=== PATIENT | female | born 1985 | race Asian ===

== ENCOUNTER 2017-11-13 14:54 | Inpatient (IN) | payer SELFPAY ==
[2017-11-13] MEDS ORDERED: Lidocaine 1% w/Epinephrine 1:100K 20 ML VIAL ONE (15:16)
[2017-11-13 15:31] LABS: Bilirubin Negative (Negative); Blood, Urine Trace (Negative); Clarity CLEAR (Clear); Glucose, Urine (Dipstick) Negative (Negative); Leukocyte Small (Negative); Nitrite Negative (Negative); Protein, Urine (Dipstick) Negative (Neg-Trace); Specific Gravity, Urine 1.036 (1.002-1.036); Urobilinogen 0.2 mg/dL (0.2-1.0)
[2017-11-13 15:33] LABS: Bacteria/HPF None Seen HPF (None Seen); Hyaline Casts/LPF 0-3 HYALINE CAST LPF (0-3 Hyaline); Pathc Cast-AUWi Flag 0.14 (0-2.49); Squamous Epithelial 0-3 HPF (0-3)
[2017-11-13 15:44] LABS: Benzodiazepine Screen Detected (NotDetected); Medtox Reader # READER 1
[2017-11-13 15:45] LABS: Amphetamine Not Detected (NotDetected); Barbiturates Screen Not Detected (NotDetected); Cocaine Metabolite Screen Not Detected (NotDetected); Medtox Control Line Valid? VALID (VALID); Methadone Not Detected (NotDetected); Methamphetamine Not Detected (NotDetected); Opiate Screen Not Detected (NotDetected); Oxycodone Screen Not Detected (NotDetected); Phencyclidine (PCP) Not Detected (NotDetected); THC/Cannabinoid Screen Not Detected (NotDetected); Tricyclic Screen Not Detected (NotDetected)
--- NOTE | 2017-11-13 16:06 | RAD ---
PORTABLE CHEST ONE VIEW: Date: 11-13-17 Time: 2:27 p.m. History: Altered mental status. FINDINGS: The heart size is normal. The lungs are expanded without focal areas of consolidation, pneumothorax, or pleural effusions. The first image demonstrates a coin in the right lower chest which was removed when the second image was obtained. POS: [facility]
[2017-11-13 16:17] LABS: BHCG - Serum Negative (NEGATIVE); Pregs Control Background? CLEAR/WHITE (CLR/WHITE); Pregs Control Bar Appear? YES (CONTROL BAR)
[2017-11-13 16:18] LABS: Acetaminophen Less than 6.0 mcg/mL (10.0-30.0); Alcohol Less than 10 mg/dL (Less than 10); Salicylate Less than 8.0 mg/dL (15.0-30.0)
[2017-11-13 16:20] LABS: ALT (SGPT) 35 U/L (8-55); AST (SGOT) 27 U/L (5-34); Albumin 4.5 g/dL (3.5-5.0); Alkaline Phosphatase 38 U/L (40-150); Anion Gap 12 mmol/L (10-20); BUN (Urea Nitrogen) 5 mg/dL (7.0-18.7); Bilirubin, Total 0.6 mg/dL (0.2-1.2); CK (CPK) 186 U/L (29-168); Calc. Creatinine Clearance 0 mL/min (70-130); Calcium 8.5 mg/dL (7.8-10.44); Carbon Dioxide 21 mmol/L (22-29); Chloride 109 mmol/L (98-107); Estimated GFR-MDRD Greater than 90; Globulin 2.7 g/dL (2.4-3.5); Glucose 114 mg/dL (70-105); Lipase 12 U/L (8-78); Potassium 3.3 mmol/L (3.5-5.1); Protein, Total 7.2 g/dL (6.0-8.3); Sodium 139 mmol/L (136-145)
[2017-11-13 16:23] LABS: CKMB 2.3 ng/mL (0-6.6); Troponin I Less than 0.010 ng/mL (< 0.028)
[2017-11-13 16:28] LABS: Color Of CSF Supernatant COLORLESS (Colorless); Tube # 2; Unspun CSF Color COLORLESS (Colorless)
[2017-11-13 16:29] LABS: CSF Source CSF; Clarity Clear (Clear); RBC Count - Manual 81 /cumm (None Seen); Tube # 4; WBC/NonHematics Count - Manual 1 /cumm (0-5)
[2017-11-13 16:42] LABS: CSF Source CSF; CSF, Glucose 67 mg/dl (40-70); CSF, Protein 29 mg/dL (15-40); Clarity Clear (Clear); Tube # 1; WBC/NonHematics Count - Manual 1 /cumm (0-5)
[2017-11-13 16:43] LABS: RBC Count - Manual 270 /cumm (None Seen)
[2017-11-13 16:47] LABS: #Eosinphils 0.1 thou/uL (0.0-0.7); #Lymphocytes 2.8 thou/uL (1.20-3.40); #Monocytes 0.5 thou/uL (0.11-0.59); #Neutrophils 5.7 thou/uL (1.40-6.50); %Basophils 0.3 % (0.0-1.0); %Lymphocytes 30.4 % (21.0-51.0); %Monocytes 5.2 % (0.0-10.0); %Neutrophils 63.1 % (42.0-75.0); Mean Corpuscular HGB CONC 35.3 g/dL (32.0-36.0); Mean Corpuscular Hemoglobin 31.5 pg (27.0-31.0); Mean Corpuscular Volume 89.4 fL (78.0-98.0); Platelet Count 246 thou/uL (130-400); RBC Distribution Width 10.9 % (11.5-14.5); Red Blood Cell (RBC) Count 4.12 mill/uL (4.20-5.40); White Blood Cell (WBC) Count 9.1 thou/uL (4.8-10.8)
[2017-11-13 17:32] LABS: T4 7.9 ug/dL (4.87-11.72)
--- NOTE | 2017-11-13 18:16 | HP ---
DATE OF ADMISSION: 11/13/2017 TIME OF SERVICE: 1730 hours. PRIMARY CARE PHYSICIAN: None. The patient is [place] [facility]. [facility] COMPLAINT: Altered mental status. HISTORY OF PRESENT ILLNESS: Patient is a 32-year-old [place] female with a history of problems a couple of years ago that her brother describes as mental and sleep problems. She was given a medicin e at that time by [place] doctor and seemed to get over it. The brother gives a history in the last 2 days, the patient has not been acting like herself. She suggs s not really been talking and kind of been moving around slowly. Yesterday, they gave her some of th e medicine from the [place] doctor again and today, she was found down on the floor choking on a br acelet that she had tried to swallow. EMS was called. She was brought to the emergency department f or evaluation. Here, her CK was elevated. Her prolactin was slightly elevated. She is awake and following simple c ommands, though she does not understand [place] and her brother has to translate in [place] for her . She subsequently has no focal deficits. Test of the labs remained normal. We were called for fur ther workup. The brother denies her having any bowel or bladder incontinence, no tongue biting and no tonic clonic type activity. PAST MEDICAL HISTORY: None. PAST SURGICAL HISTORY: None. HOME MEDICATIONS, ALLERGIES: Unknown. The medicine she has received from a [place] doctor her bro ther has at home but is written down in [place] and he does not know the translation. ALLERGIES: NKDA. FAMILY HISTORY: Negative for clotting or bleeding disorder. No immune dysfunction. SOCIAL HISTORY: Negative for habits x3. 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 REVIEW OF SYSTEMS: Obtained through her brother are negative for all systems except as stated as per HPI. PHYSICAL EXAMINATION: VITAL SIGNS: Temperature current 98.2, pulse 84, blood pressure 133/87, respiratory rate 20, satting 100% on room air. GENERAL: She is awake. She is alert. She is following commands. She is a well-developed, well-nou rished [place] female, appears to be in zero distress. HEENT: Normocephalic and atraumatic. Pupils are equal and round, reactive to light bilaterally. Mu cous membranes are moist. She has no visible lesions or thrush. NECK: Supple. She has no lymphadenopathy, no JVD, no thyromegaly. She has normal carotid upstroke. I do not appreciate bruit. CHEST: Lungs are Clear. She has good air movement. Symmetric chest excursion. No wheezes, no rale s, no rhonchi. No prolonged expiratory phase. CARDIOVASCULAR: Normal S1, S2. She has no S3 or S4. I appreciate no murmurs. ABDOMEN: Soft, it is nontender, nondistended. No masses or organomegaly. She has good bowel sounds in all 4 quadrants. No rebound, rigidity or guarding. EXTREMITIES: No cyanosis, no clubbing, no edema, 2+ dorsalis pedis and posterior tibials bilaterally . SKIN: Warm, moist, and well perfused. She has no rash or lesions. She does have some kind of pink pigment or pain present around her nipples down onto her abdomen area. She has been painted on there . Her brother is not sure where it came from. MUSCULOSKELETAL: Normal to inspection. Large joints appear normal. No evidence of inflammation or palpable effusions. NEUROLOGIC: Her cranial nerves II-XII are grossly intact. She is able to move all of her extremitie s. She follows commands. She really did not speak much. LABORATORY DATA: 1. CBC showed a white count of 9.1, hemoglobin 13.0, hematocrit of 36.8, platelet count is normal at 246,000 with normal differential. 2. CMP: Sodium 139, potassium 3.3, chloride 109, bicarb 21, BUN 5, creatinine 0.60, glucose 114. C alcium is 8.5. CK is slightly elevated at 186. Alkaline phosphatase low. Liver function within nor mal limits. Ammonia is normal at 34. CK-MB is normal at 2.3. Troponin I was undetectable less than 0.010 and her BNP was undetectable. 3. Her TSH was suppressed at 0.0030 and a prolactin was slightly elevated at 2.[address] was negative. Urinalysis showed 11-20 white cells, small amount of leukoesterase, but no bacteria . CSF studies obtained showed 1 white blood cell and a few red blood cells numbering 81 in tube 4. 4. She had glucose and protein that were normal. 5. Urine drug screen was positive for benzodiazepines. Negative for salicylate, acetaminophen and a lcohol, rest were negative. IMAGING: Chest x-ray showed no acute abnormalities. She had a CT scan at the outside facility is re portedly negative that I do not have access to that. ASSESSMENT AND PLAN: 1. Metabolic encephalopathy: The etiology is not clear. I wonder she has not been having partial s eizures for a couple of days and progressed to a grand mal seizure or a complex seizure. We will justo ce her on Keppra for right now. We will watch her on seizure precautions overnight on telemetry monique flores and serial cardiac biomarkers. We will ask Neurology to evaluate. 2. Positive for benzodiazepines: The patient does not take any medicines other than what the [place] doctor gave her and we are not sure what that is. Her urine drug screen positive for benzodiazep melissa, both here and at the outside facility prior to getting any medicines. 3. Near-choking spell. Patient apparently tried to swallow some kind of bracelet and was choking on it, but her brother was able to get it out and remove it. 4. We will place the patient in observation, watch overnight.
[2017-11-13] MEDS ORDERED: Ondansetron HCl/PF 4 MG/2 ML Vial IVP PRN ×2 (18:32→18:48)
[2017-11-13] MEDS ORDERED: Ondansetron ODT 4 MG TAB SL PRN (18:32)
[2017-11-13] MEDS ORDERED: Acetaminophen 650 MG Suppository PR PRN (18:48)
[2017-11-13] MEDS: Famotidine 20 MG TAB PO SCH (21:09)
[2017-11-13] MEDS: D5 1/2 NS w/20 mEq KCL 1,000 ML IV SCH (21:12)
[2017-11-13] MEDS: levETIRAcetam In NaCl (Iso-Os) 1,000 MG in Premix Bag 1 BAG IVPB SCH (21:13)
[2017-11-13] MEDS: Acetaminophen 325 MG TAB PO PRN (23:46)
[2017-11-14 03:04] VITALS: BMI 26.7
[2017-11-14] MEDS: D5 1/2 NS w/20 mEq KCL 1,000 ML IV SCH (06:24)
[2017-11-14 08:34] LABS: #Basophils 0.1 thou/uL (0.0-0.2); #Eosinphils 0.1 thou/uL (0.0-0.7); #Monocytes 0.4 thou/uL (0.11-0.59); #Neutrophils 4.1 thou/uL (1.40-6.50); %Basophils 0.8 % (0.0-1.0); %Eosinophils 1.3 % (0.0-10.0); %Lymphocytes 30.5 % (21.0-51.0); %Monocytes 6.5 % (0.0-10.0); Hemoglobin 13.2 g/dL (12.0-16.0); Mean Corpuscular HGB CONC 33.8 g/dL (32.0-36.0); Mean Corpuscular Hemoglobin 30.9 pg (27.0-31.0); Mean Corpuscular Volume 91.6 fL (78.0-98.0); Mean Platelet Volume 6.6 fL (7.4-10.4); Platelet Count 242 thou/uL (130-400); Red Blood Cell (RBC) Count 4.26 mill/uL (4.20-5.40); White Blood Cell (WBC) Count 6.7 thou/uL (4.8-10.8)
[2017-11-14 08:50] LABS: Anion Gap 11 mmol/L (10-20); BUN (Urea Nitrogen) 4 mg/dL (7.0-18.7); Calc. Creatinine Clearance 137 mL/min (70-130); Calcium 8.8 mg/dL (7.8-10.44); Carbon Dioxide 22 mmol/L (22-29); Chloride 111 mmol/L (98-107); Estimated GFR-MDRD Greater than 90; Glucose 115 mg/dL (70-105); Potassium 3.7 mmol/L (3.5-5.1); Sodium 140 mmol/L (136-145)
[2017-11-14] MEDS: Famotidine 20 MG TAB PO SCH ×2 (10:38→21:44)
[2017-11-14] MEDS: Acetaminophen 325 MG TAB PO PRN (10:38)
[2017-11-14] MEDS: levETIRAcetam In NaCl (Iso-Os) 1,000 MG in Premix Bag 1 BAG IVPB SCH (10:39)
[2017-11-14] MEDS ORDERED: HYDROcodone/Acetaminophen 7.5/325 mg Tablet PO SCH (13:15)
[2017-11-14] MEDS ORDERED: levETIRAcetam 500 MG TAB PO SCH (14:00)
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
[2017-11-14] MEDS: levETIRAcetam 500 MG TAB PO SCH (21:44)
[2017-11-15] MEDS: Acetaminophen 325 MG TAB PO PRN (01:16)
--- NOTE | 2017-11-15 02:52 | CON ---
DATE OF CONSULTATION: 11/14/2017 REFERRING PROVIDER: Dr. Joel Woody. REASON FOR CONSULTATION: Altered mental status. HISTORY OF PRESENT ILLNESS: Ms. Avila is a 32-year-old female, who has been concerned for evaluation o f altered mental status. History is obtained from patient's brother. I had a discussion with the br other using the carving machine operator. Brother reports that patient had been acting in a bizarre behavior on da y before yesterday. She had highlighted different parts of her body. She then had yesterday an epis ode of hitting her head. She developed pain and headache onto the back of the head and she was again not acting appropriately, which brought her to the [facility]. He reports that she has had episodes of a bizarre behavior in the past. Her first episode was 9 years ago, at which time she was started on medication that he does not know the name of. At that time, he was told judy t she has some form of mental illness. She was started on medication for approximately 2 weeks and t hen discontinued. Since then she has had multiple episodes of bizarre behavior, for which she had to be given medications. Her last episode was about 1 year ago. At that time, the physicians in [facility] had started her on medication that he states was supposed to be for headaches. He states that th ree of her siblings also have some form of episodes of bizarre behavior, for which they have been michaela ated. He himself had episode of a bizarre behavior 20 years ago, but since then he has not had any e pisode. PAST MEDICAL HISTORY: None significant. PAST SURGICAL HISTORY: None significant. SOCIAL HISTORY: She does not smoke cigarettes, drink alcohol, or use illicit drugs. CURRENT MEDICATIONS: None. ALLERGIES: No known drug allergies. FAMILY HISTORY: As mentioned above in HPI, otherwise negative. REVIEW OF SYSTEMS: Unable to perform. PHYSICAL EXAMINATION: VITAL SIGNS: Blood pressure of 137/95, pulse of 71, temperature of 98.7, respirations 16, and O2 sat is 99% on room air. GENERAL: A well-developed, well-nourished female in no apparent distress. RESPIRATORY: Clear to auscultation bilaterally. CARDIOVASCULAR: Regular rate and rhythm. NEUROLOGIC EXAM: Mental status: The patient is awake, alert. She appears oriented to person. Jean joiner and language difficult to evaluate, although the brother reports that it is her normal speech. Cr anial nerves: Pupils are 3 mm and reactive. Visual vazquez are full to threat. External muscles are intact. No nystagmus is noted. Face is symmetric. Tongue and uvula are midline. Motor exam showe d normal tone and bulk with 4/5 strength in both upper and lower extremities. Sensory: Sensation ap pears intact. Deep tendon reflexes 2+ reflexes in both upper and lower extremities. Babinski: Plan tar responses flexion bilaterally. Coordination intact to [id number] and finger tapping bila terally. Gait and Romberg are not tested. LABORATORY DATA: Labs are reviewed, which included CBC, CMP, TSH, urinalysis, CSF study, and urine d rug screen, which is significant for TSH of 0.003. Urinalysis showing a small leukocyte esterase wit h 11-20 wbc, otherwise negative. IMPRESSION: Acute delirium. Ms. Avlia is a 32-year-old female, who presented with acute delirium. On further discussion with the brother, she is noted to have some hallucinations and delusionary behavi or. Based on this description, it is likely that she has underlying psychiatric condition, more like ly either schizophrenia or other psychotic conditions. I would recommend obtaining MRI brain with an d without contrast to rule out underlying structural pathology as the cause of her symptoms. This co uld also be secondary to thyroid or metabolic derangement, as she has a very low TSH. Thyroid-induce d delirium cannot be completely excluded. I do not think, based on the description, that she had sei zures. I would discontinue Keppra for now. I will obtain MRI and also EEG to further evaluate for s eizure-type activity. Continue supportive care. Thank you for the consultation.
[2017-11-15] MEDS: levETIRAcetam 500 MG TAB PO SCH ×3 (08:19→20:46)
[2017-11-15] MEDS: Famotidine 20 MG TAB PO SCH ×3 (08:19→20:45)
--- NOTE | 2017-11-15 11:06 | PRG ---
DATE OF SERVICE: 11/15/2017 SUBJECTIVE: The patient today is laughing uncontrollably. She is not going to verbally interact. T ranslation line was used in the patient said that she would not be talking to us and shaking her head no while laughing uncontrollably. PHYSICAL EXAMINATION: VITAL SIGNS: Temperature is 97.3, pulse 75, respirations 16, 100% on room air, blood pressure 102/63 . GENERAL: Age appropriate female who was again laughing uncontrollably. She is not terribly cooperat vito with the exam. HEART: Attempted to listen to her heart which sounds normal, then she pushed my hands away. LABORATORY DATA: Only new lab results were spinal fluid, which is negative on culture. IMPRESSION AND PLAN: Altered mental status. At this point, the patient's behavior has completely tu rned 180 degrees from the sobbing and crying that she was experiencing yesterday and uncontrollable l aughter today. I appreciate neurology's input. It is concern at this point that the patient has mariano deepika psychiatric disease. Her other issues are low TSH with normal T3 and the very slightly elevated prolactin level. We will attempt to get the MRI today. Unclear that the patient will tolerate it. Pending results of that. We will talk to Neurology again to see if this is truly something that nee ds to be worked up now or can be medically cleared for psychiatric evaluation. If not, we would cons ider pursuing a facility where the patient can receive medication psych treatment.
[2017-11-15] MEDS: Ondansetron ODT 4 MG TAB PO PRN (14:21)
--- NOTE | 2017-11-15 16:53 | RAD ---
ABDOMEN ONE VIEW: 11/15/17 HISTORY: MRI clearance. FINDINGS/IMPRESSION: Visualized bowel gas pattern is nonspecific. Phleboliths project over the pelvis. No metallic foreign bodies are visible. POS: [facility]
--- NOTE | 2017-11-15 17:00 | RAD ---
SKULL TWO VIEWS: HISTORY: MRI clearance. Unknown if the patient has had previous intracranial hardware or surgery. TECHNIQUE: AP and lateral views of the skull are obtained. FINDINGS: The calvarium is unremarkable. No evidence of radiopaque foreign bodies or debris seen. IMPRESSION: Normal two views skull with no evidence of intracranial hardware or radiopaque foreign body seen. POS: [facility]
[2017-11-16] MEDS: Famotidine 20 MG TAB PO SCH ×2 (08:06→20:46)
[2017-11-16] MEDS: levETIRAcetam 500 MG TAB PO SCH (08:06)
[2017-11-16] MEDS: Ondansetron ODT 4 MG TAB PO PRN (13:10)
[2017-11-16] MEDS: Acetaminophen 325 MG TAB PO PRN (14:32)
--- NOTE | 2017-11-16 16:37 | PRG ---
DATE OF SERVICE: 11/16/2017 SUBJECTIVE: The patient is a little bit more interactive today. Her brother is here visiting and he reports that she has been more interactive with him as well. He was the scooping machine tender apt to communica te with the patient. She did apparently report some headache and she tends to indicate her temporal area, especially on the left. She also complains of some pain in her right forearm area. She has an ecchymoses there from where IV site was previously. OBJECTIVE: VITAL SIGNS: Temperature 98.1, pulse 80, respirations 16, pulse 100, BP 118/83.GENERAL APPEARANCE: Age appropriate female. She is in no distress. She is awake and more alert. HEART: Regular rate and rhythm. LUNGS: Clear. ABDOMEN: Soft, nontender, nondistended. HEENT: Pupils are reactive. IMAGING DATA: X-rays of the skull and abdomen were negative, clearing the patient for MR. ASSESSMENT: 1. Altered mental status with an apparent attempt at self harm. Patient has been evaluated by Neuro logy. The patient has had some slight alterations with prolactinemia, which was very mild and a low TSH. The patient has been unable to cooperate enough to get the MRI. She was able to get some x-ray s of the skull and abdomen yesterday to clear her for getting the MRI and the MRI went down this morn ing. It is back up this afternoon and she has gone through the MRI. Once we obtain that we do not s ee any evidence of microadenoma, we will consider a consult to [facility] at that time. 2. Mild hyperprolactinemia, unclear etiology. Again, the MRI will help sort that out. 3. Decreased TSH with normal T3 rather. This would imply the patient had some exogenous thyroid, al though there is no indication that she was taking any. We will also recheck those values tomorrow to confirm that they are in fact correct.
--- NOTE | 2017-11-16 17:03 | MRI ---
BRAIN MRI WITHOUT CONTRAST: Date: 11-16-17 Comparison: None. History: Altered mental status, elevated prolactin, low TSH. Technique: Multiplanar, multisequence MRI images were obtained of the brain without contrast using a pituitary mass protocol. FINDINGS: The diffusion weighted imaging demonstrates no evidence for acute infarction. The sagittal T1 weighted imaging demonstrates normal osseous marrow signal intensity. Arterial flow voids at the axial level of the skull base appear unremarkable on the T2 weighted imagi ng. There is no suprasellar lesion identified. No abnormal T2 or FLAIR signal is seen on the axial imagin g within the brain parenchyma. Post contrast imaging was not performed as the patient refused IV access. This limits assessment for a sellar lesion. IMPRESSION: Grossly unremarkable noncontrast enhanced assessment as detailed above. Evaluation for a pituitary ma ss is limited without post contrast imaging, but no contour abnormality of the pituitary gland is not ed and no suprasellar mass lesion is seen. POS: [facility]
[2017-11-16] MEDS ORDERED: traMADol HCl 50 MG TAB PO PRN (17:39)
[2017-11-17] MEDS: Famotidine 20 MG TAB PO SCH ×2 (08:51→21:38)
[2017-11-17] MEDS: Acetaminophen 325 MG TAB PO PRN (09:17)
[2017-11-17 11:38] LABS: Free T4 (Free Thyroxine) 1.45 ng/dL (0.70-1.48)
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
[2017-11-18] MEDS: Famotidine 20 MG TAB PO SCH ×2 (09:44→20:32)
[2017-11-18] MEDS: Enoxaparin Sodium 40 MG/0.4 ML SYRINGE SC SCH (09:44)
[2017-11-18] MEDS: Ondansetron ODT 4 MG TAB PO PRN (12:24)
[2017-11-18] MEDS: Acetaminophen 325 MG TAB PO PRN ×3 (12:24→20:35)
--- NOTE | 2017-11-18 21:13 | PDOC.PN ---
- Subjective Encounter Start Date: 11/18/17 Encounter Start Time: 15:00 Patient initially spoke with me. She denied pain or headache. - Objective Resuscitation Status: Resuscitation Status FULL:Full Resuscitation Vital Signs & Weight: Vital Signs (12 hours) Temp Pulse Resp BP Pulse Ox 11/18/17 20:00 97.5 F L 89 12 11/18/17 19:01 97.5 F L 89 12 134/88 99 11/18/17 16:15 97.8 F 82 16 126/85 98 11/18/17 11:36 98.0 F 97 16 130/75 98 Weight Weight 146 lb 5 oz I&O: 11/17/17 11/18/17 11/19/17 06:59 06:59 06:59 Intake Total 980 0 1200 Output Total 0 Balance 980 0 1200 Result Diagrams: 11/14/17 08:19 11/14/17 08:19 Phys Exam - Physical Examination Constitutional: NAD Respiratory: no wheezing, no rales, no rhonchi, clear to auscultation bilateral Cardiovascular: RRR, no significant murmur Gastrointestinal: soft, non-tender, no distention, positive bowel sounds Musculoskeletal: no edema Deviation from normal: Initially happy. When asked about the home situation, she became very tearful. Then she went flat and would not respond further. Dx/Plan (1) Altered mental status Code(s): R41.82 - ALTERED MENTAL STATUS, UNSPECIFIED Status: Acute (2) Suicidal ideation Code(s): R45.851 - SUICIDAL IDEATIONS Status: Acute - Plan * Very difficult situation. She appears to understand [place] well. Does not want to talk about her situation. When asked if she was afraid of someone she nodded yes and became very emotional and cried. She would not speak anymore. I spoke with her brother. He said she lives with him, his and children. She had indicated her brother was not the problem and she did not want him to know about this issue. She has not really spoken since. Her brother said that she would not tell the family about any of her problems and would lie cover up any problems. He said that two years ago, she behaved very similarly. The medication from the [place] doctor made her sleep for a couple of days and then she got some better. She has a referral to [facility]. Awaiting a bed. Time 37 minutes.
[2017-11-18] MEDS ORDERED: Haloperidol Lactate 5 MG/ML VIAL IM PRN (21:57)
[2017-11-18] MEDS: traMADol HCl 50 MG TAB PO PRN (22:02)
[2017-11-19] MEDS: Famotidine 20 MG TAB PO SCH ×2 (08:51→19:55)
[2017-11-19] MEDS: Enoxaparin Sodium 40 MG/0.4 ML SYRINGE SC SCH (08:52)
--- NOTE | 2017-11-19 10:41 | EKG ---
Test Reason : Blood Pressure : / mmHG Vent. Rate : 078 BPM Atrial Rate : 078 BPM P-R Int : 144 ms QRS Dur : 078 ms QT Int : 386 ms P-R-T Axes : 053 059 017 degrees QTc Int : 440 ms Normal sinus rhythm Normal ECG Confirmed by KEVIN DALE, BLANCA ([id number]), editor farm journal JAVIER GEORGE ([id number]) on 11/19/2017 10:40:43 AM Referred By: Confirmed By:BLANCA BROWN MD
[2017-11-20] MEDS: Famotidine 20 MG TAB PO SCH ×2 (08:51→20:40)
[2017-11-20] MEDS: Enoxaparin Sodium 40 MG/0.4 ML SYRINGE SC SCH (08:51)
--- NOTE | 2017-11-20 12:09 | PDOC.PN ---
- Subjective Encounter Start Date: 11/19/17 Encounter Start Time: 16:30 Patient still not talking much. Keith said that her family came by and brought her clothes. She would not get up to shower with the sitter, but did with a cousin. Patient's aunt said told the sitter that the patient has children [place] [facility], but the father will not let her see them. She feels this is part of the problem with the patient's mental health. - Objective Resuscitation Status: Resuscitation Status FULL:Full Resuscitation Vital Signs & Weight: Vital Signs (12 hours) Temp Pulse Resp BP Pulse Ox 11/20/17 08:00 98.4 F 71 20 123/83 97 Weight Weight 146 lb 5 oz I&O: 11/19/17 11/20/17 11/21/17 06:59 06:59 06:59 Intake Total 1800 Balance 1800 Result Diagrams: 11/14/17 08:19 11/14/17 08:19 Phys Exam - Physical Examination Constitutional: NAD Respiratory: no wheezing, no rales, no rhonchi, clear to auscultation bilateral Cardiovascular: RRR, no significant murmur Gastrointestinal: soft, non-tender, no distention Musculoskeletal: no edema Deviation from normal: Sleeps a lot. Labile. Dx/Plan (1) Altered mental status Code(s): R41.82 - ALTERED MENTAL STATUS, UNSPECIFIED Status: Acute (2) Suicidal ideation Code(s): R45.851 - SUICIDAL IDEATIONS Status: Acute (3) Low TSH level Code(s): R79.89 - OTHER SPECIFIED ABNORMAL FINDINGS OF BLOOD CHEMISTRY Status : Acute Comment: Normal free T3 and T4. Suspect subclinical hyperthyroidism. Should not be impactful on her current symptomatology. - Plan * Eval'd by [facility]. Plan is to transfer to [facility] when bed available.
--- NOTE | 2017-11-20 15:33 | PDOC.PN ---
- Subjective Encounter Start Date: 11/20/17 Encounter Start Time: 15:32 Nursing made me aware of the patient's attempt to elope. No other issues noted. - Objective Resuscitation Status: Resuscitation Status FULL:Full Resuscitation Vital Signs & Weight: Vital Signs (12 hours) Temp Pulse Resp BP Pulse Ox 11/20/17 08:00 98.4 F 71 20 123/83 97 Weight Weight 146 lb 5 oz I&O: 11/19/17 11/20/17 11/21/17 06:59 06:59 06:59 Intake Total 1800 Balance 1800 Result Diagrams: 11/14/17 08:19 11/14/17 08:19 Phys Exam - Physical Examination Constitutional: NAD Dx/Plan (1) Altered mental status Code(s): R41.82 - ALTERED MENTAL STATUS, UNSPECIFIED Status: Acute (2) Suicidal ideation Code(s): R45.851 - SUICIDAL IDEATIONS Status: Acute (3) Low TSH level Code(s): R79.89 - OTHER SPECIFIED ABNORMAL FINDINGS OF BLOOD CHEMISTRY Status : Acute Comment: Normal free T3 and T4. Suspect subclinical hyperthyroidism. Should not be impactful on her current symptomatology. - Plan * Awaiting placement at [facility].
[2017-11-21] MEDS: Famotidine 20 MG TAB PO SCH ×2 (08:09→20:26)
[2017-11-21] MEDS: Enoxaparin Sodium 40 MG/0.4 ML SYRINGE SC SCH (08:09)
--- NOTE | 2017-11-21 19:13 | PDOC.PN ---
- Subjective Encounter Start Date: 11/21/17 Encounter Start Time: 19:10 Subjective: f/u for AMS, suicidal ideation awaiting psych inpt placement at [facility]. - Objective Resuscitation Status: Resuscitation Status FULL:Full Resuscitation MAR Reviewed: Yes Vital Signs & Weight: Vital Signs (12 hours) Temp Pulse Resp BP Pulse Ox 11/21/17 08:00 97.8 F 74 18 96 11/21/17 07:48 97.8 F 74 18 121/76 96 Weight Weight 146 lb 5 oz I&O: 11/20/17 11/21/17 11/22/17 06:59 06:59 06:59 Intake Total 560 1200 Balance 560 1200 Result Diagrams: 11/14/17 08:19 11/14/17 08:19 Additional Labs: Microbiology 11/13/17 16:36 Venous blood - Left Hand Blood Culture - Final NO GROWTH IN 5 DAYS 11/13/17 16:06 Spinal Fluid Culture - Pending Body Fluid Culture - Final 11/13/17 15:48 Venous blood - Right Arm Blood Culture - Final NO GROWTH IN 5 DAYS Phys Exam - Physical Examination Constitutional: NAD HEENT: PERRLA, sclera anicteric, oral pharynx no lesions Neck: no nodes, no JVD, supple, full ROM Respiratory: no wheezing, no rales, no rhonchi, clear to auscultation bilateral S1, S2 Cardiovascular: RRR, no significant murmur, no rub, gallop Gastrointestinal: soft, non-tender, no distention, positive bowel sounds Musculoskeletal: no edema, pulses present Neurological: normal sensation, moves all 4 limbs flat affect Skin: normal turgor, cap refill <2 seconds Dx/Plan (1) Encephalopathy acute Code(s): G93.40 - ENCEPHALOPATHY, UNSPECIFIED Status: Acute Comment: Likely metabolic with component of psych, plan for [facility] placement (2) Suicidal ideation Code(s): R45.851 - SUICIDAL IDEATIONS Status: Acute Comment: See above, sitter 1:1 - Plan director social, DVT proph w/SCDs Stable overall -: Await approval for transfer to [facility] -: OOB/ambulate -: Sitter 1:1 * .
[2017-11-21] MEDS: traMADol HCl 50 MG TAB PO PRN (20:27)
[2017-11-22] MEDS: Enoxaparin Sodium 40 MG/0.4 ML SYRINGE SC SCH ×2 (08:50→08:54)
[2017-11-22] MEDS: Famotidine 20 MG TAB PO SCH ×2 (08:50→20:30)
[2017-11-22] MEDS: Acetaminophen 325 MG TAB PO PRN (09:03)
[2017-11-22] MEDS: traMADol HCl 50 MG TAB PO PRN (15:44)
--- NOTE | 2017-11-22 20:00 | PDOC.PN ---
- Subjective Encounter Start Date: 11/22/17 Encounter Start Time: 14:00 Subjective: f/u for AMS, suicidal ideation. Awaiting inpt psych placement. - Objective Resuscitation Status: Resuscitation Status FULL:Full Resuscitation MAR Reviewed: Yes Vital Signs & Weight: Vital Signs (12 hours) Temp Pulse Resp Pulse Ox 11/22/17 08:00 97.8 F 77 18 98 Weight Weight 146 lb 5 oz I&O: 11/21/17 11/22/17 11/23/17 06:59 06:59 06:59 Intake Total 560 1650 1000 Balance 560 1650 1000 Result Diagrams: 11/14/17 08:19 11/14/17 08:19 Additional Labs: Microbiology 11/13/17 16:36 Venous blood - Left Hand Blood Culture - Final NO GROWTH IN 5 DAYS 11/13/17 16:06 Spinal Fluid Culture - Pending Body Fluid Culture - Final 11/13/17 15:48 Venous blood - Right Arm Blood Culture - Final NO GROWTH IN 5 DAYS Phys Exam - Physical Examination agitated, restless HEENT: PERRLA, sclera anicteric, oral pharynx no lesions Neck: no nodes, no JVD, supple, full ROM Respiratory: no wheezing, no rales, no rhonchi, clear to auscultation bilateral S1, S2 Cardiovascular: RRR, no significant murmur, no rub, gallop Gastrointestinal: soft, non-tender, no distention, positive bowel sounds Musculoskeletal: no edema, pulses present Neurological: normal sensation, moves all 4 limbs Skin: no rash, normal turgor, cap refill <2 seconds Dx/Plan (1) Encephalopathy acute Code(s): G93.40 - ENCEPHALOPATHY, UNSPECIFIED Status: Acute Comment: Likely metabolic with component of psych, plan for [facility] placement (2) Suicidal ideation Code(s): R45.851 - SUICIDAL IDEATIONS Status: Acute Comment: See above, sitter 1:1 - Plan social services specialist, DVT proph w/SCDs Continue sitter 1:1 -: [facility] attempting inpatient psych placement -: Supportive mgmt * .
[2017-11-23] MEDS: Famotidine 20 MG TAB PO SCH ×2 (08:24→20:50)
[2017-11-23] MEDS: Enoxaparin Sodium 40 MG/0.4 ML SYRINGE SC SCH (08:26)
[2017-11-23] MEDS: traMADol HCl 50 MG TAB PO PRN (15:52)
--- NOTE | 2017-11-23 17:31 | PDOC.PN ---
- Subjective Encounter Start Date: 11/23/17 Encounter Start Time: 17:25 Subjective: f/u for AMS, suicidal ideation awaiting transfer to [facility] psych. - Objective Resuscitation Status: Resuscitation Status FULL:Full Resuscitation MAR Reviewed: Yes Vital Signs & Weight: Vital Signs (12 hours) Temp Pulse Resp BP Pulse Ox 11/23/17 08:00 98.1 F 93 16 149/86 H 99 Weight Weight 146 lb 5 oz I&O: 11/22/17 11/23/17 11/24/17 06:59 06:59 06:59 Intake Total 1650 1250 240 Balance 1650 1250 240 Result Diagrams: 11/14/17 08:19 11/14/17 08:19 Phys Exam - Physical Examination Constitutional: NAD HEENT: PERRLA, sclera anicteric, oral pharynx no lesions Neck: no nodes, no JVD, supple, full ROM Respiratory: no wheezing, no rales, no rhonchi, clear to auscultation bilateral S1, S2 Cardiovascular: RRR, no significant murmur, no rub, gallop Gastrointestinal: soft, non-tender, no distention, positive bowel sounds Musculoskeletal: no edema, pulses present Neurological: normal sensation, moves all 4 limbs Psychiatric: normal affect Skin: no rash, normal turgor, cap refill <2 seconds Dx/Plan (1) Encephalopathy acute Code(s): G93.40 - ENCEPHALOPATHY, UNSPECIFIED Status: Acute Comment: Likely metabolic with component of psych, plan for [facility] placement (2) Suicidal ideation Code(s): R45.851 - SUICIDAL IDEATIONS Status: Acute Comment: See above, sitter 1:1 - Plan oncology social work, DVT proph w/SCDs Stable overall -: Awaiting transfer to [facility] -: Supportive care -: 1:1 observation * .
[2017-11-23] MEDS: Ondansetron ODT 4 MG TAB PO PRN (22:10)
[2017-11-24 07:37] VITALS: BP 131/84; TEMP 97.6
[2017-11-24] MEDS: Enoxaparin Sodium 40 MG/0.4 ML SYRINGE SC SCH (10:13)
[2017-11-24] MEDS: Famotidine 20 MG TAB PO SCH (10:15)
--- NOTE | 2017-11-24 11:18 | DIS ---
DATE OF ADMISSION: 11/13/2017 DATE OF DISCHARGE: 11/24/2017 DISCHARGE DIAGNOSES: 1. Acute encephalopathy, multifactorial. 2. Suicidal ideation. CONSULTATIONS: Dr. Gilliland with Neurology Service, [facility] services. PERTINENT LABORATORY DATA AND X-RAY FINDINGS: Potassium ranged between 3.3-3.7, total CK 186. Serum ammonia level 34. TSH 0.003. Free T3 3.18, free T4 1.45. Prolactin level 26.98. Serum beta hCG n egative. CBC within normal limits. Urinalysis negative. CSF VDRL nonreactive. Urine drug screen d ated 11/13/2017 showed positive for benzodiazepines. Herpes simplex virus culture from CSF negative, 11/13/2017. Blood cultures x2 dated 11/13/2017, negative at 5 days. CSF fluid culture dated 2017, no growth at 5 days. Portable chest x-ray dated 11/13/2017 showed a coin in the right lower ch est which was removed when the second image was obtained. Abdominal radiographs dated 11/15/2017 kaylin wed no metallic foreign bodies present. Skull radiograph dated 11/15/2017 showed no evidence of intr acranial hardware or foreign body. MRI of the brain dated 11/16/2017 showed no acute intracranial pr ocess. HOSPITAL COURSE: Patient was initially admitted to the medical floor after presenting with altered m ental status/encephalopathy of unclear etiology. The patient apparently attempted to swallow a brace let or coin, which were removed at the time of evaluation in the emergency room as well as from her b rother. The patient underwent metabolic evaluation showing a depressed TSH level with normal free T4 and T3 levels. The patient was evaluated by the Neurology Service with recommendations to undergo RI imaging of the brain showing no acute intracranial process. Initial concern was for potential sei zure-like activity with a mildly elevated prolactin level. The patient received Keppra initially; ho wever, this was discontinued after the patient was not diagnosed with a seizure disorder. The patien t was noted with benzodiazepines on urine drug screen of unclear source. Metabolic workup was essent ially unrevealing to date and the patient remained clinically stable under close observation on the edical floor. Due to patient's persistent altered mentation and questionable suicidal ideation, the patient was deemed an appropriate candidate for ongoing inpatient psychiatric care. The patient has been approved for transfer to [facility] and will transfer on 11/24/2017. I have examined the patient at the time of discharge and discussed followup instructions with the family. The [facility] will transfer on 11/24/2017. DISCHARGE MEDICATIONS: None. FOLLOWUP: The patient to follow up with Dr. Lea at [facility] for an ongoing inpatient psychiatric care. CONDITION ON DISCHARGE: Stable. ACTIVITY: ad charly. DIET: Regular. CODE STATUS: FULL. DISPOSITION: Discharge to [facility], 11/24/2017.
== END 2017-11-24 14:45 | DRG 885 ==
LOC: ERS 14:54 → 2SE 18:20 → INTOOBSV 18:20 → OBSVTOIN 18:20 → UNDODISIN 11-17 16:17 → T4-B 11-18 08:15
PROVIDERS: ADMIT Internal Medicine Infectious Disease; ATTEND Internal Medicine Infectious Disease
DX: F29 Unspecified psychosis not due to a substance or known physiological condition (principal); G93.41 Metabolic encephalopathy; T14.91XA Suicide attempt, initial encounter; X83.8XXA Intentional self-harm by other specified means, initial encounter; F19.90 Other psychoactive substance use, unspecified, uncomplicated; E05.90 Thyrotoxicosis, unspecified without thyrotoxic crisis or storm
CPT/HCPCS: 36415; 62270; 70250; 70551; 71045; 74018; 80048; 80053; 80306; 80307; 81003; 81015; 82140; 82553; 82945; 83690; 83880; 84146; 84157; 84436; 84439; 84443; 84481; 84484; 84703; 85025; 85652; 86592; 87040; 87070; 87205; 87255; 89051; 93005; 94760; A4216; J1650; J1953; J2001; Q0162